=== PATIENT | female | born 1990 | race Caucasian/White ===

== ENCOUNTER → 2016-05-18 | Outpatient (CLI) | payer OTHER | LOC: M SMT 11:08 | PROVIDERS: ATTEND Advanced Practice Midwife | DX: N91.1 Secondary amenorrhea (principal) ==

== ENCOUNTER → 2016-06-20 | Outpatient (REF) | payer OTHER | LOC: M SFHCPLAZ 11:22 | PROVIDERS: ATTEND Dermatology | DX: D48.5 Neoplasm of uncertain behavior of skin (principal) ==

== ENCOUNTER → 2016-08-22 | Outpatient (REF) | payer OTHER ==
[2016-08-22 18:08] LABS: BASO % 0.4 % (0.0-1.0); CONTROL LINE HCG INT CTR LINE PRESENT; EOS # 0.2 K/mm3 (0.0-0.50); EOS % 3.6 % (0.0-3.0); LARGE UNSTAINED CELL # 0.1 K/mm3 (0.0-0.4); LARGE UNSTAINED CELL % 1.8 % (0.0-4.0); LYMPH # 1.9 K/mm3 (1.5-6.5); LYMPH % 29.3 % (24.0-44.0); MEAN CORPUSCULAR HEMOGLOBIN 30.7 pg (27.0-33.0); MONO # 0.3 K/mm3 (0.0-0.8); MONO % 5.3 % (0.0-5.0); NEUTROPHILS # 3.7 K/mm3 (1.8-7.7); NEUTROPHILS % 59.4 % (36.0-66.0); PLATELET COUNT, AUTOMATED 208 k/mm3 (150-450); RED CELL DISTRIBUTION WIDTH 12.6 % (11.5-14.5); WHITE BLOOD COUNT 6.2 K/mm3 (4.0-10.0)
[2016-08-22 18:19] LABS: PROLACTIN 13.5 NG/ML
[2016-08-22 19:37] LABS: T UPTAKE 37 % (30-39); THYROXINE (T4) 6.4 UG/DL (4.5-12.0)
== END ==
LOC: M LAB REF 17:31
PROVIDERS: ATTEND Family Medicine
DX: N93.8 Other specified abnormal uterine and vaginal bleeding (principal)

== ENCOUNTER → 2017-01-23 | Outpatient (CLI) | payer OTHER | LOC: M SMT 11:31 | PROVIDERS: ATTEND Obstetrics & Gynecology | DX: N97.0 Female infertility associated with anovulation (principal) ==

== ENCOUNTER → 2017-02-20 | Outpatient (CLI) | payer OTHER | LOC: M WUC 15:52 | PROVIDERS: ATTEND Obstetrics & Gynecology | DX: N97.0 Female infertility associated with anovulation (principal) ==

== ENCOUNTER → 2017-03-25 | Outpatient (CLI) | payer OTHER ==
[2017-03-25 20:27] LABS: PROGESTERONE 80.9 NG/ML
== END ==
LOC: M WUC 13:18
DX: N97.0 Female infertility associated with anovulation (principal)
CPT/HCPCS: 84144

== ENCOUNTER → 2017-04-25 | Outpatient (CLI) | payer OTHER ==
[2017-04-25 19:56] LABS: PROGESTERONE 28.5 NG/ML
== END ==
LOC: M WUC 13:46
DX: N97.0 Female infertility associated with anovulation (principal)
CPT/HCPCS: 84144

== ENCOUNTER → 2018-02-01 | Outpatient (CLI) | payer BC, OTHER | LOC: M LDO 22:50 | DX: O26.892 Other specified pregnancy related conditions, second trimester (principal); R10.30 Lower abdominal pain, unspecified; M54.5 Low back pain; O44.10 Complete placenta previa with hemorrhage, unspecified trimester; O26.852 Spotting complicating pregnancy, second trimester; Z3A.25 25 weeks gestation of pregnancy | CPT/HCPCS: 76815 ==

== ENCOUNTER → 2018-02-24 | Outpatient (CLI) | payer BC, OTHER ==
[2018-02-24 12:01] LABS: HEMATOCRIT 33.6 % (36.0-47.0); HEMOGLOBIN 11.2 g/dl (12.0-15.5); MEAN CORPUSCULAR HEMOGLOBIN 31.7 pg (27.0-33.0); MEAN CORPUSCULAR HGB CONC 33.3 g/dl (32.0-36.5); MEAN CORPUSCULAR VOLUME 95.2 fl (80.0-96.0); PLATELET COUNT, AUTOMATED 177 10^3/uL (150-450); RED BLOOD COUNT 3.53 10^6/uL (4.00-5.40); RED CELL DISTRIBUTION WIDTH 12.9 % (11.5-14.5); WHITE BLOOD COUNT 10.1 10^3/uL (4.0-10.0)
[2018-02-24 12:18] LABS: GLUCOSE CHALLENGE TEST 1 HOUR 88 MG/DL (LESS THAN 140)
== END ==
LOC: M LAB 10:19
DX: Z36.89 Encounter for other specified antenatal screening (principal)
CPT/HCPCS: 82950

== ENCOUNTER → 2018-04-10 | Outpatient (REF) | payer OTHER ==
[~2018-04-10] MED LIST: IBUP80TA PO; META0.52 PO; NORCOTAB PO; PERCOCET PO; PRENTAB55 PO; VALT1TAB PO
== END ==
LOC: M LAB REF 12:55 → MERGE 12:55
PROVIDERS: ATTEND Obstetrics & Gynecology
DX: Z3A.35 35 weeks gestation of pregnancy (principal); Z34.83 Encounter for supervision of other normal pregnancy, third trimester

== ENCOUNTER 2018-05-06 07:30 | Inpatient (IN) | payer BC, OTHER ==
[~2018-05-06] VITALS: Ht 162.6 cm; Wt 82.0 kg
[~2018-05-06 07:30] MED LIST changes: -IBUP80TA PO; -NORCOTAB PO; -PERCOCET PO
[2018-05-08] MEDS ORDERED: LACTATED RINGER'S 1000 ML IV STA (07:37)
[2018-05-08] MEDS: LR 1,000 ML IV SCH ×3 (07:37→23:37)
[2018-05-08] MEDS ORDERED: BICITRA 30ML SOLN UDC PO ONE (07:45)
[2018-05-08 07:46] VITALS: BP 124/82
[2018-05-08 08:09] LABS: HEMOGLOBIN 11.5 g/dl (12.0-15.5); MEAN CORPUSCULAR HEMOGLOBIN 30.8 pg (27.0-33.0); MEAN CORPUSCULAR HGB CONC 33.8 g/dl (32.0-36.5); MEAN CORPUSCULAR VOLUME 91.2 fl (80.0-96.0); PLATELET COUNT, AUTOMATED 170 10^3/uL (150-450); RED BLOOD COUNT 3.73 10^6/uL (4.00-5.40)
[2018-05-08 08:27] VITALS: BP 126/79
[2018-05-08] MEDS ORDERED: NALBUPHINE HCL 10 MG/ML AMP (J2300) IV PRN (10:45)
[2018-05-08] MEDS ORDERED: ONDANSETRON 4MG/2ML VIAL (J2405) IV PRN ×2 (10:45→11:45)
[2018-05-08] MEDS ORDERED: NALOXONE INJ 0.4 MG/1 ML VIAL (J2310) IV PRN ×2 (10:45)
[2018-05-08] MEDS ORDERED: diphenhydrAMINE INJ 50MG/ML VIAL (J1200) IV PRN (10:45)
[2018-05-08] MEDS ORDERED: METOCLOPRAMIDE INJ 10MG/2ML VIAL (J2765) IV PRN ×2 (10:45→11:45)
[2018-05-08] MEDS ORDERED: OXYTOCIN INJ 10 UNITS/ML VIAL (J2590) As Ordered ONE (10:48)
[2018-05-08] MEDS ORDERED: MORPHINE PRES-FREE INJ 10 MG/10 ML VIAL (J2274) As Ordered ONE (10:48)
[2018-05-08] MEDS ORDERED: ePHEDrine SULFATE 25 MG/5 ML(5MG/ML) SYRINGE As Ordered ONE (11:01)
[2018-05-08] MEDS ORDERED: PHENYLephrine HCL 500 MCG/5 ML (100MCG/ML) SYRINGE (J2370) As Ordered ONE (11:01)
[2018-05-08] MEDS ORDERED: ONDANSETRON 4MG/2ML VIAL (J2405) As Ordered ONE (11:01)
[2018-05-08] MEDS ORDERED: dexameTHASONE 4 MG/ML 1ML VIAL (J1100) As Ordered ONE (11:01)
[2018-05-08] MEDS ORDERED: KETOROLAC 60 MG/2 ML VIAL (J1885) As Ordered ONE (11:02)
[2018-05-08] MEDS ORDERED: fentaNYL 100 MCG/2 ML INJECTION (J3010) IV PRN (11:45)
[2018-05-08] MEDS ORDERED: LR 1,000 ML IV SCH (11:45)
[2018-05-08] MEDS ORDERED: RHOGAM 300 MCG (1500 IU) INJ (J2790) IM SCH (11:45)
[2018-05-08] MEDS ORDERED: MEASLES,MUMPS,RUBELLA VACCINE INJ (MMR-II) (90707) SC SCH (11:45)
[2018-05-08] MEDS ORDERED: PERCOCET 5MG/325MG TAB PO PRN (11:45)
[2018-05-08] MEDS ORDERED: NORCO, ANEXSIA 5/325MG TABLET (HYDROcodone/ACETAMINOPHEN) PO PRN (11:45)
[2018-05-08] MEDS ORDERED: MOM 30ML SUSPENSION UDC PO PRN (11:45)
[2018-05-08] MEDS ORDERED: MEPERIDINE INJ 25 MG/ML VIAL (J2175) IV PRN (11:45)
[2018-05-08] MEDS ORDERED: IBUP80TA PO (11:46)
[2018-05-08] MEDS ORDERED: PERCOCET PO (11:46)
[2018-05-08 11:58] LABS: CORD GAS ABE V -3.4; CORD GAS HCO3 V 21.3 MEQ/L; CORD GAS O2 SAT V 67.3 %; CORD GAS PCO2 V 37.3 mmHg; CORD GAS PH V 7.375 UNITS; CORD GAS PO2 V 26.6 mmHg; CORD GAS TCO2 V 22.5 MEQ/L
[2018-05-08 14:15] VITALS: BP 122/71
[2018-05-08] MEDS: NORCO, ANEXSIA 5/325MG TABLET (HYDROcodone/ACETAMINOPHEN) PO PRN ×2 (15:38→22:13)
[2018-05-08 15:48] VITALS: BP_SYST 115; BP_SYST 127; BP_DIAS 69; BP_DIAS 75
[2018-05-08] MEDS: IBUPROFEN 800 MG TAB PO SCH (18:44)
[2018-05-08 22:00] VITALS: BP 99/55
--- NOTE | 2018-05-08 22:11 | RO ---
DATE OF PROCEDURE: 05/08/2018 Jo Ann is a 28-year-old female who is at 39 weeks gestation with a history of placenta previa resolved to a low-lying placenta. The patient desires a primary section. She also has a history of herpes. After extensive counseling in the office a decision was made to proceed with the primary section. PREOPERATIVE DIAGNOSES 1. Term with low-lying placenta. 2. Desires primary section. 3. History of herpes. POSTOPERATIVE DIAGNOSIS 1. Term with low-lying placenta. 2. Desires primary section. 3. History of herpes. 4. Low-lying anterior placenta. PROCEDURE: Primary low transverse section via Pfannenstiel incision. ANESTHESIA: Spinal. SURGEON: Julio C Powell MD CEO & FOUNDER: Francia Monteiro MD COMPLICATIONS: None. ESTIMATED BLOOD LOSS: 500 mL. FINDINGS: Male infant in occiput transverse position. 9 and 9. weight 7 pounds 8 ounces. Normal-appearing tube and ovary and anterior low-lying placenta noted at the level of the year low lower uterine segment. DESCRIPTION OF PROCEDURE: After obtaining informed consent, the patient was taken to the operating room where spinal anesthetic was found to be adequate. She was then draped and prepped in usual sterile fashion in the supine position. With the help of Dr. Monteiro, a Pfannenstiel incision was made. This was carried down to the fascia. Fascia was then incised in midline fashion. The fascia was in midline fashion. The superior and inferior aspect dissected off the rectus muscles sharply. The perineum identified. Perineal cavity entered bluntly. A Mobius skin retractor was placed. A low-transverse uterine incision was made. Infant was delivered in atraumatic fashion. Nose and mouth bulb suctioned. Cord doubly clamped and cut. was handed over to the waiting warmer. Cord blood and cord gas were sent. Placenta removed manually. Uterus cleared of all clot and debris and the uterine incision was then repaired in two separate layers of #0 Vicryl sutures. All superficial bleeders were coagulated. Pelvis copiously irrigated with normal saline and suctioned out. Attention turned to the peritoneum which was closed in a running fashion using #2-0 Vicryl. Fascia closed in two separate segment of #0 Vicryl sutures. All superficial bleeders coagulated and the skin was reapproximated in subcuticular fashion using #3-0 Vicryl suture in a subcuticular fashion. Steri-Strips placed. The patient tolerated procedure well. She was then transferred to recovery room in stable condition.
[2018-05-08] MEDS: DOCUSATE SODIUM 100 MG CAP PO SCH (22:14)
[2018-05-09] VITALS (7 sets, daily range): BP systolic 97–145; BP diastolic 55–68
[2018-05-09] MEDS: NORCO, ANEXSIA 5/325MG TABLET (HYDROcodone/ACETAMINOPHEN) PO PRN ×3 (02:39→14:58)
[2018-05-09] MEDS: IBUPROFEN 800 MG TAB PO SCH ×3 (02:39→18:40)
[2018-05-09 07:04] LABS: HEMATOCRIT 27.7 % (36.0-47.0); MEAN CORPUSCULAR HGB CONC 32.9 g/dl (32.0-36.5); MEAN CORPUSCULAR VOLUME 94.2 fl (80.0-96.0); PLATELET COUNT, AUTOMATED 137 10^3/uL (150-450); RED BLOOD COUNT 2.94 10^6/uL (4.00-5.40); WHITE BLOOD COUNT 13.2 10^3/uL (4.0-10.0)
[2018-05-09 07:13] LABS: HEMOGLOBIN 9.1 g/dl (12.0-15.5)
[2018-05-09] MEDS: LR 1,000 ML IV SCH ×3 (07:37→23:20)
[2018-05-09] MEDS: PRENATAL VITAMINS CHEWABLE TABLET PO SCH (09:19)
[2018-05-09] MEDS: DOCUSATE SODIUM 100 MG CAP PO SCH ×2 (09:19→20:48)
[2018-05-10] MEDS: NORCO, ANEXSIA 5/325MG TABLET (HYDROcodone/ACETAMINOPHEN) PO PRN ×3 (00:22→10:00)
[2018-05-10 02:05] VITALS: BP 110/59
[2018-05-10] MEDS: IBUPROFEN 800 MG TAB PO SCH ×2 (03:12→09:59)
[2018-05-10 06:30] VITALS: BP 103/69
--- NOTE | 2018-05-10 07:48 | DS.PDOC ---
Discharge Summary General Date of Admission May 08, 2018 at 07:10 Date of Discharge 05/10/18 Discharge Summary PROCEDURES PERFORMED DURING STAY: Primary section ADMITTING DIAGNOSES: 1. Low lying placenta with history previa 2. Genital HSV DISCHARGE DIAGNOSES: 1. Term with primary section COMPLICATIONS/CHIEF COMPLAINT: H/O Placenta Previa, W/ Low Lying Placenta. HISTORY OF PRESENT ILLNESS: 28 yo ERVIN 05/15/18, pt of [facility]. complicated by history placenta previa that resolved to low lying placenta. Due to placental concerns and history genital HSV, pt and Dr Powell decided upon primary section. HOSPITAL COURSE: WNL DISCHARGE MEDICATIONS: Please see below. ALLERGIES: Please see below. PHYSICAL EXAMINATION ON DISCHARGE: VITAL SIGNS: Please see below. GENERAL: WNL HEENT: WM: NECK: Supple CARDIOVASCULAR EXAMINATION: Normotensive, HRR RESPIRATORY EXAMINATION: Clear, unlabored ABDOMINAL EXAMINATION: Fundus firm, wound well approximated, steri strips intact. No s/s infection EXTREMITIES: Equal strength and motion SKIN: Intact NEUROLOGICAL EXAMINATION: Intact PSYCHIATRIC EXAMINATION: Appropriate LABORATORY DATA: Please see below. PROGNOSIS: Good ACTIVITY: As tolerated. Pelvic rest DIET: Regular DISCHARGE PLAN: Discharge home. Routine care and precautions. DISPOSITION: Home. DISCHARGE INSTRUCTIONS: 1. Home. Routine precautions and care. Pelvic rest. F/u apt in office 2wks and 6 wks DISCHARGE CONDITION: Stable. TIME SPENT ON DISCHARGE: Greater than minutes. Vital Signs/I&Os Vital Signs Date Time Temp Pulse Resp B/P (MAP) Pulse Ox O2 Delivery O2 Flow Rate FiO2 05/10/18 06:30 97.1 75 16 103/69 (80) 96 Discharge Medications Scheduled Ibuprofen (Ibuprofen) 800 Mg Tab, 1 TAB PO TID for pain Multivitamins/ ( 19) 1 Tab Tab, 1 TAB PO DAILY, (Reported) Psyllium (Metamucil) 0.52 Gm Cap, 1 TBS PO DAILY, (Reported) Valacyclovir Hydrochloride (Valtrex) 1 Gm Tab, 1 GM PO DAILY, (Reported) Scheduled PRN Oxycodone/Acetaminophen (Percocet 5MG/325MG Tablet) 1 Tab Tab, 1 TAB PO QIDP PRN for pain Allergies Coded Allergies: Amoxicillin (Verified Allergy, Unknown, HIVES, 02/01/18) TAPE (Verified Adverse Reaction, Unknown, "ADHESIVES" RASH, 05/08/18) Corin Salas CNM May 10, 2018 07:48
[2018-05-10] MEDS ORDERED: NORCOTAB PO (07:50)
[2018-05-10] MEDS ORDERED: IBUP80TA PO (07:50)
[2018-05-10] MEDS: PRENATAL VITAMINS CHEWABLE TABLET PO SCH (08:21)
[2018-05-10] MEDS: DOCUSATE SODIUM 100 MG CAP PO SCH (08:21)
== END 2018-05-10 10:30 | disposition home or self-care (01) | DRG 540 ==
LOC: M LDI 05-08 07:10 → M OBS 05-08 20:02
PROVIDERS: ADMIT Obstetrics & Gynecology; ATTEND Obstetrics & Gynecology
PROC: 10D00Z1 Extraction of Products of Conception, Low, Open Approach (ICD-10-PCS; principal; 2018-05-08 09:30)
DX: O44.43 Low lying placenta NOS or without hemorrhage, third trimester (principal); Z3A.39 39 weeks gestation of pregnancy; Z37.0 Single live birth

== ENCOUNTER → 2018-05-19 | Outpatient (REF) | payer OTHER ==
[~2018-05-19] MED LIST changes: +IBUP80TA PO; +NORCOTAB PO; +PERCOCET PO
== END ==
LOC: M SFHCLERA 19:43
PROVIDERS: ATTEND Physician Assistant
DX: R50.9 Fever, unspecified (principal)

== ENCOUNTER → 2018-10-20 | Outpatient (REF) | payer OTHER ==
[~2018-10-20] MED LIST changes: +HYDR-3715 PO; -NORCOTAB PO
== END ==
LOC: M SFHCPLAZ 17:03
PROVIDERS: ATTEND Dermatology
DX: D22.5 Melanocytic nevi of trunk (principal)

== ENCOUNTER → 2019-02-18 | Outpatient (REF) | payer OTHER | LOC: M SFHCWAGY 19:07 | PROVIDERS: ATTEND Obstetrics & Gynecology | DX: Z12.4 Encounter for screening for malignant neoplasm of cervix (principal) ==

== ENCOUNTER → 2019-05-11 | Outpatient (REF) | payer OTHER | LOC: M LAB REF 09:06 | PROVIDERS: ATTEND Dermatology | DX: D49.2 Neoplasm of unspecified behavior of bone, soft tissue, and skin (principal) ==

== ENCOUNTER → 2019-05-25 | Outpatient (REF) | payer OTHER | LOC: M LAB REF 17:15 | PROVIDERS: ATTEND Dermatology | DX: D49.2 Neoplasm of unspecified behavior of bone, soft tissue, and skin (principal) ==

== ENCOUNTER → 2019-06-23 | Outpatient (CLI) | payer OTHER ==
[2019-06-23 12:51] LABS: PROGESTERONE 44.22 NG/ML
== END ==
LOC: M WUC 09:17
PROVIDERS: ATTEND Obstetrics & Gynecology Reproductive Endocrinology
DX: Z32.00 Encounter for pregnancy test, result unknown (principal)

== ENCOUNTER → 2019-06-25 | Outpatient (CLI) | payer OTHER ==
[2019-06-25 10:11] LABS: THYROID STIMULATING HORMONE 1.38 uIU/ML (0.358-3.740)
[2019-06-25 10:45] LABS: PROGESTERONE 29.12 NG/ML
[2019-06-25 10:46] LABS: ESTRADIOL 137.6 PG/ML
== END ==
LOC: M WUC 08:45
PROVIDERS: ATTEND Obstetrics & Gynecology Reproductive Endocrinology
DX: Z32.01 Encounter for pregnancy test, result positive (principal)

== ENCOUNTER → 2019-07-02 | Outpatient (CLI) | payer BC ==
[2019-07-02 15:20] LABS: PROGESTERONE 53.46 NG/ML
[2019-07-02 15:21] LABS: ESTRADIOL 238.1 PG/ML; THYROID STIMULATING HORMONE 1.16 uIU/ML (0.358-3.740)
== END ==
LOC: M PLALAB 13:29
PROVIDERS: ATTEND Obstetrics & Gynecology Reproductive Endocrinology
DX: N97.9 Female infertility, unspecified (principal)

== ENCOUNTER → 2019-07-02 | Outpatient (CLI) | payer BC ==
--- NOTE | 2019-07-03 04:47 | REP ---
Clinical: Dating and viability. Technique: Transabdominal and transvaginal first trimester obstetrical ultrasound. Findings: Anteverted uterus identified with suspected early intrauterine . Mean sac diameter of 13 mm corresponds to 5 weeks 3 days gestational age without obvious yolk sac or pole yet identified. Maternal left ovary is normal. Maternal right ovary includes 1.9 cm presumed corpus luteal cyst. Impression: Possible early intrauterine . Correlation with serial HCG levels and repeat ultrasound evaluation may be warranted.
== END ==
LOC: M WHC 12:50
PROVIDERS: ATTEND Obstetrics & Gynecology Reproductive Endocrinology
DX: Z32.01 Encounter for pregnancy test, result positive (principal)

== ENCOUNTER → 2019-07-09 | Outpatient (CLI) | payer BC ==
[2019-07-09 14:15] LABS: PROGESTERONE 30.55 NG/ML; THYROID STIMULATING HORMONE 1.23 uIU/ML (0.358-3.740)
== END ==
LOC: M PLALAB 09:42
PROVIDERS: ATTEND Obstetrics & Gynecology Reproductive Endocrinology
DX: O09.00 Supervision of pregnancy with history of infertility, unspecified trimester (principal)

== ENCOUNTER → 2019-07-09 | Outpatient (CLI) | payer BC ==
--- NOTE | 2019-07-09 18:43 | REP ---
Clinical: Dating and viability. Technique: Transabdominal and transvaginal first trimester obstetrical ultrasound with color Doppler evaluation. Findings: Ultrasound examination demonstrates a single live early intrauterine . Yolk sac with pole identified. CRL of 3 mm correspond to 6 weeks 0 days gestational age with estimated date of delivery 03/03/2020. heart rate equals 121 beats per minute. No subchorionic hemorrhage or significant abnormality noted. Maternal right corpus luteal cyst identified. Impression: Single live early intrauterine at 6 weeks 0 days gestational age. Complete anatomical assessment should be performed at 19-20 weeks.
== END ==
LOC: M WHC 09:07
PROVIDERS: ATTEND Obstetrics & Gynecology Reproductive Endocrinology
DX: O09.00 Supervision of pregnancy with history of infertility, unspecified trimester (principal); Z3A.01 Less than 8 weeks gestation of pregnancy; N83.11 Corpus luteum cyst of right ovary; O26.891 Other specified pregnancy related conditions, first trimester

== ENCOUNTER → 2019-08-05 | Outpatient (REF) | payer OTHER ==
[2019-08-05 14:29] LABS: HEMATOCRIT 38.3 % (36.0-47.0); HEMOGLOBIN 12.6 g/dl (12.0-15.5); MEAN CORPUSCULAR HEMOGLOBIN 30.5 pg (27.0-33.0); MEAN CORPUSCULAR HGB CONC 32.9 g/dl (32.0-36.5); MEAN CORPUSCULAR VOLUME 92.7 fl (80.0-96.0); PLATELET COUNT, AUTOMATED 246 10^3/uL (150-450); RED BLOOD COUNT 4.13 10^6/uL (4.00-5.40); WHITE BLOOD COUNT 9.7 10^3/uL (4.0-10.0)
[2019-08-05 15:43] LABS: HEPATITIS B SURFACE ANTIGEN NEGATIVE (NEGATIVE); HEPATITIS C VIRUS ABY INDEX 0.1 INDEX (<0.8); HIV 1&2 SCREEN CENTAUR NEGATIVE (NEGATIVE)
[2019-08-05 15:51] LABS: CHLAMYDIA DNA AMPLIFICATION NEGATIVE (NEGATIVE); GC DNA AMPLIFICATION NEGATIVE (NEGATIVE)
== END ==
LOC: M PLALAB 10:45
PROVIDERS: ATTEND Obstetrics & Gynecology
DX: O34.211 Maternal care for low transverse scar from previous cesarean delivery (principal); Z3A.00 Weeks of gestation of pregnancy not specified

== ENCOUNTER → 2019-10-01 | Outpatient (CLI) | payer BC ==
--- NOTE | 2019-10-01 17:55 | REP ---
OB ULTRASOUND: Real-time sonographic evaluation of gravid uterus performed. There is a single living intrauterine gestation, estimated gestational age, 18 weeks 5 days, EDC . Today's measurements indicate appropriate growth. BPD 40 mm = 18 weeks 0 days, 32nd percentile HC 149 mm = 18 weeks 0 days, 30th percentile AC 125 mm = 18 weeks 1 day, 37th percentile Femur length 27 mm = 18 weeks 1 day, 37th percentile HC/AC ratio 1.20, normal range 1.07-1.26. Estimated weight 226 grams. 26th percentile. Cervix is closed and measures 3.3 cm in length. heart rate 149 beats per minute. SEEN/GROSSLY UNREMARKABLE Lateral ventricles Yes Posterior fossa Yes Upper lip Yes Four-chamber heart No LVOT No RVOT Yes Stomach Yes Cord insertion Yes Three vessel cord Yes Kidneys Yes Bladder Yes Spine Yes position: Variable. Placenta: Posterior and grade 1 with no previa or abruption. Amniotic fluid: Within normal limits.
== END ==
LOC: M WHC 12:43
PROVIDERS: ATTEND Advanced Practice Midwife
DX: O34.219 Maternal care for unspecified type scar from previous cesarean delivery (principal)

== ENCOUNTER → 2019-10-30 | Outpatient (CLI) | payer BC ==
--- NOTE | 2019-12-09 08:49 | REP ---
OBSTETRIC SONOGRAPHY HISTORY: Encounter for supervision of normal . Follow-up anatomy four chamber heart and left ventricular outflow tract view. FINDINGS: Scanning through the gravid uterus demonstrates a viable single intrauterine gestation in a breech lie. The placenta is posterior grade 1 without evidence of placenta previa or abruption. Amniotic fluid is subjectively normal. heart rate is recorded at 158 beats per minute. Closed cervical length is 3.6 cm viewed transabdominally. Sagittal images of the spine are obtained today and are felt to be unremarkable. kidneys and bladder are felt to be normal. Three-vessel cord and abdominal wall cord insertion are seen and are felt to be unremarkable. Four chamber heart and left and right ventricular outflow tract views were obtained today and are unremarkable as well. BIOMETRY CHART: BPD 49 mm 21 weeks 0 days Head Circumference 197 mm 21 weeks 6 days Abdominal Circumference 167 mm 21 weeks 5 days Femur Length 38 mm 22 weeks 0 days Humeral Length 36 mm 27 weeks 3 days Estimated Weight 450 g 7th percentile IMPRESSION: Viable single intrauterine gestation at 21 weeks 5 days. Estimated date of delivery (ERVIN) by today's sonography 03/06/2020. Four chamber heart and left ventricular outflow tract views are obtained today and are felt to be unremarkable. MTDD
== END ==
LOC: M WHC 13:49
PROVIDERS: ATTEND Advanced Practice Midwife
DX: Z34.92 Encounter for supervision of normal pregnancy, unspecified, second trimester (principal); Z3A.21 21 weeks gestation of pregnancy

== ENCOUNTER → 2019-11-25 | Outpatient (CLI) | payer BC ==
[2019-11-25 14:06] LABS: BASO % 0.4 % (0.0-1.0); EOS # 0.2 10^3/uL (0.0-0.5); EOS % 1.9 % (0.0-3.0); HEMATOCRIT 34.9 % (36.0-47.0); HEMOGLOBIN 11.6 g/dl (12.0-15.5); LYMPH # 1.2 10^3/uL (1.5-5.0); LYMPH % 12.6 % (24.0-44.0); MEAN CORPUSCULAR HEMOGLOBIN 32.4 pg (27.0-33.0); MEAN CORPUSCULAR HGB CONC 33.2 g/dl (32.0-36.5); MEAN CORPUSCULAR VOLUME 97.5 fl (80.0-96.0); MONO # 0.8 10^3/uL (0.0-0.8); MONO % 8.5 % (0.0-5.0); NEUTROPHILS # 7.1 10^3/uL (1.5-8.5); NEUTROPHILS % 76.1 % (36.0-66.0); PLATELET COUNT, AUTOMATED 198 10^3/uL (150-450); RED BLOOD COUNT 3.58 10^6/uL (4.00-5.40); WHITE BLOOD COUNT 9.4 10^3/uL (4.0-10.0)
== END ==
LOC: M PLALAB 09:14
PROVIDERS: ATTEND Advanced Practice Midwife
DX: Z34.82 Encounter for supervision of other normal pregnancy, second trimester (principal)

== ENCOUNTER → 2019-12-14 | Outpatient (CLI) | payer BC ==
--- NOTE | 2019-12-17 11:38 | REP ---
OBSTETRIC SONOGRAPHY HISTORY: growth study. Supervision of . FINDINGS: Scanning through the gravid uterus demonstrates a single living intrauterine gestation in a vertex lie. motion is observed, and heart rate is recorded at 144 beats per minute. A posterior grade 1 placenta is seen without evidence of previa. Amniotic fluid is subjectively normal. Closed cervical length is 3.2 cm measured transabdominally. BIOMETRY CHART: BPD 7.1 cm 28 weeks 4 days Head Circumference 26.4 cm 28 weeks 5 days Abdominal Circumference 24.7 cm 29 weeks 0 days Femur Length 5.4 cm 28 weeks 3 days Humeral Length 4.8 cm 28 weeks 2 days HC/AC ratio Normal 1.07 Cephalic index Normal 0.75 Estimated Weight 1277 g 2 pounds 13 ounces, 20th percentile for 29 weeks 2 days STEPHEN 15.4 cm, normal IMPRESSION: Viable single intrauterine gestation at 28 weeks 4 days by todays composite sonographic criteria. ERVIN by todays sonography March 03, 2020. MTDD
== END ==
LOC: M WHC 09:24
PROVIDERS: ATTEND Advanced Practice Midwife
DX: Z34.83 Encounter for supervision of other normal pregnancy, third trimester (principal); Z3A.28 28 weeks gestation of pregnancy

== ENCOUNTER → 2020-01-29 | Outpatient (REF) | payer OTHER | LOC: M PLALAB 13:31 | PROVIDERS: ATTEND Obstetrics & Gynecology | DX: Z3A.35 35 weeks gestation of pregnancy (principal) ==

== ENCOUNTER 2020-03-01 12:21 | Inpatient (IN) | payer BC, OTHER ==
[2020-03-01] VITALS (34 sets, daily range): BP systolic 96–144; BP diastolic 51–86
[~2020-03-01] VITALS: Ht 162.6 cm; Wt 82.6 kg
[~2020-03-01 12:21] MED LIST changes: +PRENTAB53 PO
[2020-03-01] MEDS ORDERED: LR 1,000 ML IV SCH (13:22)
[2020-03-01] MEDS ORDERED: LACTATED RINGER'S 1000 ML IV STA (13:22)
[2020-03-01] MEDS ORDERED: TUMS500C PO (14:17)
--- NOTE | 2020-03-01 14:33 | HPEPDOC ---
Obstetrical History & Physical General Date of Admission Mar 01, 2020 at 12:21 History of Present Illness 29-year-old at 40+3 weeks gestation. Presents for an induction of labor. Indication for induction: Approaching late term gestation, trial of labor with favorable cervix, preferring induction of labor She denies vaginal bleeding, loss of fluid or painful, frequent uterine contractions. She reports regular movement. She denies headache, visual changes, right upper quadrant pain, shortness of breath or chest pain. course: 1. h/o PLTCS for complete placenta previa 2. Desires TOLAC PMH: PCOS SH: LTCS x 1 Meds: vitamin All: NKDA BARTENDER: No STI or dysplasia OB: G1, SAB. G2, PLTCS complete previa, 39+ weeks Sochx: No tobacco, alcohol or drug use FamHx: thyroid CA, skin CA, MM labs: Blood type O+, antibody screen negative, HepBsAg neg, HIV neg, rubella immune, Hep C antibody negative, RPR nonreactive, CT/GC neg, urine culture negative, 1 hour glucose challenge test 72, GBS negative. Past Medical History Allergies Coded Allergies: adhesive (Verified Allergy, Intermediate, hives, 02/26/20) amoxicillin (Verified Allergy, Intermediate, hives, 02/26/20) TAPE (Verified Adverse Reaction, Unknown, "ADHESIVES" RASH, 02/26/20) Medications Scheduled Vit,Calc76/Iron/Folic (Prenatabs Rx Tablet) 1 Each Tablet, 1 TAB PO DAILY Scheduled PRN Calcium Carbonate (Tums) 200 Mg Tab.chew, 2 TAB PO QID PRN for HEARTBURN Physical Examination Physical Examination GENERAL: Alert and oriented times three. BREAST: . ABDOMEN: Gravid and non-tender to touch. FETUS: Is vertex (VTX) by sterile vaginal examination (SVE), fetus is vertex (VTX) by Harry. HEART RATE: Regular rate and rhythm. LUNGS: Clear to auscultation (CTA). EXTREMITIES: No edema. No clonus. Deep tendon reflexes (DTRs) + 2. SVE: 3-4cm/80%/-3; cephalic, intact. EFM: Category 1 [place]: irregular Laboratory Data 24H LABS Laboratory Tests 2 03/01/20 12:38: Serology Scanned Report Hepatitis B Testing Pertinent Laboratoy Data Blood Type: O+ Assessment/Plan Assessment 29-year old at 40+3 weeks gestation. Dx: TOLAC, approaching late term gestation, favorable cervix, electing IOL after reviewing r/b/a/i. Reassuring maternal and status. Plan Admit and orient. Routine labs/orders Counseled on Pitocin and induction of labor (IOL). Mode of delivery plan: TOLAC/; as indicated. ZACH NASSAR DO Mar 01, 2020 14:33
[2020-03-01] MEDS ORDERED: OXYTOCIN DRIP 30 UNITS in IV 1 EA IV SCH (14:45)
[2020-03-01 15:11] LABS: HEMATOCRIT 36.5 % (36.0-47.0); HEMOGLOBIN 12.2 g/dl (12.0-15.5); MEAN CORPUSCULAR HEMOGLOBIN 31.5 pg (27.0-33.0); MEAN CORPUSCULAR HGB CONC 33.4 g/dl (32.0-36.5); MEAN CORPUSCULAR VOLUME 94.3 fl (80.0-96.0); PLATELET COUNT, AUTOMATED 169 10^3/uL (150-450); RED BLOOD COUNT 3.87 10^6/uL (4.00-5.40); WHITE BLOOD COUNT 8.5 10^3/uL (4.0-10.0)
--- NOTE | 2020-03-01 20:37 | IPNPDOC ---
Obstetrical Progress Note Date of Service Mar 01, 2020 Subjective Patient feeling mildly uncomfortable with contractions. No LOF/VB. Objective Vital Signs Date Time Temp Pulse Resp B/P (MAP) Pulse Ox O2 Delivery O2 Flow Rate FiO2 03/01/20 18:35 62 18 116/77 (90) 03/01/20 16:02 97.9 98 Room Air Assessment Heart Rate Tracing: Category I Tocometer Contractions: Yes Frequency: every 1-3 min. (Pit at 14mU/min) Sterile Vaginal Examination Dilation: 4 cm Effacement (%): 90% Station: -2 Cervical Consistency: Soft Cervical Position: Anterior Postion/Presentation: Cephalic presentation Assessment and Plan Status: Reassuring Additional Comments Reassuring maternal and status. TOLAC. AROM , clear at 2029. Continue Pitocin Reviewed pain management options. ZACH NASSAR DO Mar 01, 2020 20:37
[2020-03-01] MEDS ORDERED: FENTANYL 2MCG/ML ROPIVACAINE 0.2% IN 0.9% NACL 100ML IVBAG As Ordered ONE (21:03)
[2020-03-01] MEDS ORDERED: ePHEDrine SULFATE 25 MG/5 ML(5MG/ML) SYRINGE IV PRN (22:15)
[2020-03-01] MEDS ORDERED: NALOXONE INJ 0.4MG/1ML VIAL (J2310 PER 1MG) IV PRN (22:15)
[2020-03-01] MEDS ORDERED: REFRIGERATOR IV KEYS XX PRN (22:15)
[2020-03-01] MEDS ORDERED: FENTANYL/ROPIVACAINE/NACL BAG 100 ML EPIDURAL SCH (22:15)
[2020-03-01] MEDS ORDERED: ONDANSETRON 4MG/2ML VIAL IV PRN (22:15)
[2020-03-01] MEDS ORDERED: EPIDURAL COMMENT XX SCH (22:15)
[2020-03-01] MEDS ORDERED: EPIDURAL/PCA KEYS XX PRN (22:15)
[2020-03-01] MEDS ORDERED: LACTATED RINGER'S 1000 ML IV PRN (22:15)
[2020-03-01] MEDS ORDERED: diphenhydrAMINE 50MG/ML VIAL (J1200) IV PRN (22:15)
[2020-03-02] MEDS ORDERED: OXYTOCIN DRIP 30 UNITS in IV 1 EA IV SCH (01:27)
[2020-03-02] MEDS ORDERED: LR 1,000 ML IV SCH (01:27)
[2020-03-02] MEDS ORDERED: ACETAMINOPHEN 500 MG TAB PO PRN (01:30)
[2020-03-02] MEDS ORDERED: RHOGAM 300 MCG (1500 IU) INJ (J2790) IM SCH (01:30)
[2020-03-02] MEDS ORDERED: ONDANSETRON 4MG/2ML VIAL IV PRN (01:30)
[2020-03-02] MEDS ORDERED: IBUPROFEN 600MG TAB PO PRN (01:30)
[2020-03-02] MEDS ORDERED: DOCUSATE SODIUM 100MG CAPSULE PO PRN (01:30)
[2020-03-02] MEDS ORDERED: BENZOCAINE 20% HEMORRHOIDAL OINTMENT 28GM TUBE TOP PRN (01:30)
[2020-03-02] MEDS ORDERED: IBUPROFEN 800 MG TAB PO PRN (01:30)
[2020-03-02] MEDS ORDERED: MEASLES,MUMPS,RUBELLA VACCINE INJ (MMR-II) (90707) SC SCH (01:30)
[2020-03-02] MEDS ORDERED: ACETAMINOPHEN TAB 650MG DOSE (2X325MG) PO PRN (01:30)
--- NOTE | 2020-03-02 01:34 | DNPDOC ---
[facility] Delivery Note Delivery Note DATE OF DELIVERY: 03/02/2020 TIME OF DELIVERY: 0106 Vaginal after . MECHANICAL CAR CHECKER: Dr. David Felton DO FACOG ANESTHESIA:. Epidural LACERATION: Second-degree ESTIMATED BLOOD LOSS: 300 mL. FINDINGS: 7 pound 6 ounce (3350 g), female , Score, 7 and 9. DELIVERY SUMMARY: The active phase and second stage of labor progressed in normal fashion. She received Pitocin augmentation throughout her labor course. The head delivered in the CAYDEN position, and restituted LOT. No nuchal cord was noted. The anterior shoulder delivered with gentle downward guidance and the remainder of the body delivered with ease. The baby was placed on the patient's chest. Delayed cord clamping occurred for approximately 1 minute. The cord was then doubly clamped and cut. IV Pitocin was bolused to actively manage the third stage of labor. The placenta delivered intact without any difficulty within 10 minutes of delivery. The uterine fundus was noted to be firm and 2 cm below the umbilicus. The cervix, vagina, vulva and perineum were inspected. A second-degree laceration was noted and immediately repaired with 3-0 Vicryl in typical fashion. Excellent hemostasis was noted. Sponge, needle and instrument counts were correct per protocol. DO ROSANNA Park JONATHAN R. DO Mar 02, 2020 01:34
[2020-03-02 05:15] VITALS: BP 117/71
[2020-03-02] MEDS: PRENATAL VITAMINS CHEWABLE TABLET PO SCH (08:02)
[2020-03-02 17:50] VITALS: BP 121/70
[2020-03-03 06:00] VITALS: BP 122/74
[2020-03-03] MEDS ORDERED: BOOSTRIX/ADACEL VACCINE (DIPHTH/PERTUSS/ACELL/TETANUS) 0.5ML SYR IM ONE (09:00)
[2020-03-03] MEDS: PRENATAL VITAMINS CHEWABLE TABLET PO SCH (09:18)
== END 2020-03-03 12:40 | disposition home or self-care (01) | DRG 560 ==
LOC: M LDI 12:21 → M OBS 03-02 04:56
PROVIDERS: ADMIT Obstetrics & Gynecology; ATTEND Obstetrics & Gynecology
PROC: 3E033VJ Introduction of Other Hormone into Peripheral Vein, Percutaneous Approach (ICD-10-PCS; 2020-03-01)
PROC: 10907ZC Drainage of Amniotic Fluid, Therapeutic from Products of Conception, Via Natural or Artificial Opening (ICD-10-PCS; 2020-03-01)
PROC: 10E0XZZ Delivery of Products of Conception, External Approach (ICD-10-PCS; principal; 2020-03-02)
PROC: 0KQM0ZZ Repair Perineum Muscle, Open Approach (ICD-10-PCS; 2020-03-02)
DX: O48.0 Post-term pregnancy (principal); O70.1 Second degree perineal laceration during delivery; Z3A.40 40 weeks gestation of pregnancy; O34.211 Maternal care for low transverse scar from previous cesarean delivery; Z37.0 Single live birth

== ENCOUNTER → 2020-09-05 | Outpatient (REF) | payer OTHER ==
[~2020-09-05] MED LIST changes: +TUMS500C PO
[2020-09-05 11:58] LABS: HEMATOCRIT 37.5 % (36.0-47.0); HEMOGLOBIN 12.4 g/dl (12.0-15.5); MEAN CORPUSCULAR HEMOGLOBIN 30.8 pg (27.0-33.0); MEAN CORPUSCULAR HGB CONC 33.1 g/dl (32.0-36.5); MEAN CORPUSCULAR VOLUME 93.3 fl (80.0-96.0); PLATELET COUNT, AUTOMATED 220 10^3/uL (150-450); RED BLOOD COUNT 4.02 10^6/uL (4.00-5.40); WHITE BLOOD COUNT 8.7 10^3/uL (4.0-10.0)
[2020-09-05 13:32] LABS: CHLAMYDIA DNA AMPLIFICATION NEGATIVE (NEGATIVE); GC DNA AMPLIFICATION NEGATIVE (NEGATIVE)
[2020-09-05 14:50] LABS: HEPATITIS C VIRUS ABY INDEX < 0.0 INDEX (<0.8); HIV 1&2 SCREEN CENTAUR NEGATIVE (NEGATIVE)
== END ==
LOC: M PLALAB 08:35
PROVIDERS: ATTEND Specialist
DX: Z34.81 Encounter for supervision of other normal pregnancy, first trimester (principal)

== ENCOUNTER → 2020-11-15 | Outpatient (CLI) | payer BC, OTHER ==
--- NOTE | 2020-11-15 10:05 | REP ---
INDICATION: ANATOMY COMPARISON: None. TECHNIQUE: Transabdominal obstetrical ultrasound with color Doppler evaluation. FINDINGS: Examination demonstrates a single live intrauterine in variable presentation. motion is identified by technologist. Placenta is noted posterior and grade 0 without evidence for placenta previa or abruption. Amniotic fluid volume is normal. Cervix measures 4.8 cm in length and appears closed.. Selected gestational age: 18 weeks 4 days with ERVIN 04/14/2021. Gestational age by current measurements 18 weeks 5 days with ERVIN 04/13/2021. FHR equals 147 beats per minute. BPD: 4.1 cm at 18 weeks 3 days HC: 15.7 cm at 18 weeks 4 days AC: 13.2 cm at 18 weeks 5 days FL: 2.9 cm at 18 weeks 5 days HL: 2.9 cm at 19 weeks 3 days HC/AC: 1.20 Estimated weight 253 grams (54thpercentile). Anatomical assessment demonstrates normal structures including cranium, choroid plexus, cavum, cerebellum/posterior fossa, facial features, lungs, four-chamber heart/ventricular outflow tracts, diaphragm, stomach, cord insertion/three-vessel cord, kidneys/bladder, spine, and extremities. IMPRESSION: Single live intrauterine demonstrating appropriate interval growth. Anatomical assessment is complete and normal. No gross abnormalities are identified. <Electronically signed by Dc Rivera > 11/15/20 1001
== END ==
LOC: M WHC 09:02
PROVIDERS: ATTEND Advanced Practice Midwife
DX: Z34.92 Encounter for supervision of normal pregnancy, unspecified, second trimester (principal)

== ENCOUNTER → 2021-01-06 | Outpatient (CLI) | payer BC, OTHER ==
[2021-01-06 13:23] LABS: MEAN CORPUSCULAR HEMOGLOBIN 31.4 pg (27.0-33.0); MEAN CORPUSCULAR HGB CONC 32.4 g/dl (32.0-36.5); MEAN CORPUSCULAR VOLUME 97.1 fl (80.0-96.0); PLATELET COUNT, AUTOMATED 241 10^3/uL (150-450); WHITE BLOOD COUNT 9.8 10^3/uL (4.0-10.0)
== END ==
LOC: M PLALAB 08:41
PROVIDERS: ATTEND Advanced Practice Midwife
DX: Z36.89 Encounter for other specified antenatal screening (principal); O34.211 Maternal care for low transverse scar from previous cesarean delivery; Z3A.00 Weeks of gestation of pregnancy not specified

== ENCOUNTER → 2021-03-16 | Outpatient (REF) | payer OTHER | LOC: M SFHCWAGY 16:45 | PROVIDERS: ATTEND Obstetrics & Gynecology | DX: O34.211 Maternal care for low transverse scar from previous cesarean delivery (principal) ==

== ENCOUNTER → 2021-06-23 | Outpatient (REF) | payer BC, OTHER | LOC: M SFHCDERM 14:03 | PROVIDERS: ATTEND Nurse Practitioner Family | DX: D22.71 Melanocytic nevi of right lower limb, including hip (principal); D22.5 Melanocytic nevi of trunk; L57.0 Actinic keratosis ==

== ENCOUNTER → 2022-01-02 | Outpatient (REF) | payer BC, OTHER ==
[2022-01-02 19:35] LABS: FREE T4 0.88 NG/DL (0.76-1.46); THYROID STIMULATING HORMONE 0.749 uIU/ML (0.358-3.740)
[2022-01-02 20:00] LABS: THYROGLOBULIN ANTIBODY < 15.0 U/ML (<60.0); THYROID PEROXIDASE ANTIBODY < 28.0 U/ML (<60.0)
== END ==
LOC: M WUC 17:10
PROVIDERS: ATTEND Family Medicine
DX: E04.1 Nontoxic single thyroid nodule (principal); E06.9 Thyroiditis, unspecified

== ENCOUNTER 2022-01-09 13:39 | Emergency (ER) | payer BC, OTHER ==
[~2022-01-09] VITALS: Ht 162.6 cm; Wt 63.8 kg
[2022-01-09 13:43] VITALS: BP 126/75
[2022-01-09 16:43] LABS: HEMATOCRIT 42.8 % (36.0-47.0); HEMOGLOBIN 13.8 g/dl (12.0-15.5); MEAN CORPUSCULAR HEMOGLOBIN 30.1 pg (27.0-33.0); MEAN CORPUSCULAR HGB CONC 32.2 g/dl (32.0-36.5); MEAN CORPUSCULAR VOLUME 93.2 fl (80.0-96.0); PLATELET COUNT, AUTOMATED 229 10^3/uL (150-450); RED BLOOD COUNT 4.59 10^6/uL (4.00-5.40); WHITE BLOOD COUNT 7.7 10^3/uL (4.0-10.0)
[2022-01-09 17:08] LABS: HCG, SERUM QUALITATIVE NEGATIVE (NEGATIVE)
[2022-01-09 17:26] LABS: ALBUMIN 3.9 GM/DL (3.2-5.2); ALT/SGPT 18 U/L (12-78); BILIRUBIN,DIRECT 0.1 MG/DL (0.0-0.2); BILIRUBIN,TOTAL 0.4 MG/DL (0.2-1.0); BLOOD UREA NITROGEN 12 MG/DL (7-18); CALCIUM LEVEL 8.8 MG/DL (8.5-10.1); CARBON DIOXIDE LEVEL 25 MEQ/L (21-32); CHLORIDE LEVEL 108 MEQ/L (98-107); CREATININE FOR GFR 0.85 MG/DL (0.55-1.30); FREE T4 0.84 NG/DL (0.76-1.46); GLOMERULAR FILTRATION RATE > 60.0 (>60); GLUCOSE, FASTING 91 MG/DL (70-100); POTASSIUM SERUM 4.2 MEQ/L (3.5-5.1); SODIUM LEVEL 139 MEQ/L (136-145); TOTAL PROTEIN 7.4 GM/DL (6.4-8.2)
[2022-01-09] MEDS ORDERED: ISOVUE-370 76% 100ML VIAL As Ordered ONE (19:06)
== END 2022-01-09 20:05 | disposition home or self-care (01) ==
LOC: M ED 13:39
DX: E07.89 Other specified disorders of thyroid (principal); R06.02 Shortness of breath; E28.2 Polycystic ovarian syndrome; Z88.1 Allergy status to other antibiotic agents; Z91.048 Other nonmedicinal substance allergy status
CPT/HCPCS: 36415; 70491; 80053; 82248; 84439; 84443; 84703; 85027; 99283; Q9967

== ENCOUNTER → 2022-01-10 | Outpatient (CLI) | payer BC, OTHER | LOC: M WHC 08:20 | PROVIDERS: ATTEND Family Medicine | DX: E04.1 Nontoxic single thyroid nodule (principal); R49.8 Other voice and resonance disorders ==

== ENCOUNTER → 2022-02-14 | Outpatient (CLI) | payer BC, OTHER ==
[~2022-02-14] MED LIST changes: +E-Z-GAS II EFFERVESCENT PACKET (SODIUM BICARB./CITRIC ACID/SIMETHICONE) As Ordered ONE; +E-Z-HD 98% w/w 340GM SUSP BTL As Ordered ONE; +E-Z-PAQUE 96% w/w SUSP 176GM BTL As Ordered ONE
== END ==
LOC: M RAD 08:16
PROVIDERS: ATTEND Otolaryngology
DX: R13.10 Dysphagia, unspecified (principal)

== ENCOUNTER → 2022-10-16 | Outpatient (CLI) | payer BC, OTHER ==
[~2022-10-16] MED LIST changes: -E-Z-GAS II EFFERVESCENT PACKET (SODIUM BICARB./CITRIC ACID/SIMETHICONE) As Ordered ONE; -E-Z-HD 98% w/w 340GM SUSP BTL As Ordered ONE; -E-Z-PAQUE 96% w/w SUSP 176GM BTL As Ordered ONE
== END ==
LOC: M RAD 08:29
PROVIDERS: ATTEND Physician Assistant
DX: R10.13 Epigastric pain (principal)

== ENCOUNTER → 2022-10-31 | Outpatient (CLI) | payer BC, OTHER | LOC: M WHC 07:34 | PROVIDERS: ATTEND Nurse Practitioner Family | DX: R10.2 Pelvic and perineal pain (principal) ==

== ENCOUNTER → 2022-11-05 | Outpatient (CLI) | payer BC, OTHER | LOC: M PLAIMG 13:52 | PROVIDERS: ATTEND Nurse Practitioner Family | DX: Z97.5 Presence of (intrauterine) contraceptive device (principal); T83.32XA Displacement of intrauterine contraceptive device, initial encounter ==

== ENCOUNTER 2023-02-04 14:01 | Day surgery (SDC) | payer BC, OTHER ==
[~2023-02-04] VITALS: Ht 162.6 cm; Wt 65.0 kg
[~2023-02-04 14:01] MED LIST changes: +HYDROMORPHONE HCL 0.5 MG/ 0.5 ML SYRINGE IV PRN; +LR 1,000 ML IV SCH; +MIDAZOLAM INJ 2MG/2ML VIAL As Ordered ONE; +MUSHROOM; +ONDANSETRON 4MG 2ML VIAL IV PRN; +PROMETHAZINE 25MG/ML 1ML VIAL IV PRN; +THERTAB52 PO; +fentaNYL 100 MCG/2 ML INJECTION As Ordered ONE; +fentaNYL 100 MCG/2 ML INJECTION IV PRN; +oxyCODONE 5MG TAB PO PRN
[2023-02-04 14:42] LABS: HEMATOCRIT 38.2 % (36.0-47.0); HEMOGLOBIN 12.7 g/dl (12.0-15.5); MEAN CORPUSCULAR HEMOGLOBIN 30.7 pg (27.0-33.0); MEAN CORPUSCULAR HGB CONC 33.2 g/dl (32.0-36.5); MEAN CORPUSCULAR VOLUME 92.3 fl (80.0-96.0); PLATELET COUNT, AUTOMATED 220 10^3/uL (150-450); RED BLOOD COUNT 4.14 10^6/uL (4.00-5.40); WHITE BLOOD COUNT 7.1 10^3/uL (4.0-10.0)
[2023-02-04 14:49] LABS: HCG, SERUM QUALITATIVE NEGATIVE (NEGATIVE)
[2023-02-04] MEDS ORDERED: ACETAMINOPHEN 1000MG 100ML IV BAG As Ordered ONE (15:35)
[2023-02-04] MEDS ORDERED: KETOROLAC 60MG 2ML VIAL As Ordered ONE (15:35)
[2023-02-04] MEDS ORDERED: SUGAMMADEX SODIUM 500 MG/5 ML VIAL (BRIDION) As Ordered ONE (15:35)
[2023-02-04] MEDS ORDERED: LIDOCAINE 2% 100MG/5ML SDV (FOR ANES.) As Ordered ONE (15:35)
[2023-02-04] MEDS ORDERED: propofoL 200 MG/20 ML VIAL As Ordered ONE (15:35)
[2023-02-04] MEDS ORDERED: ONDANSETRON 4MG 2ML VIAL As Ordered ONE (15:35)
[2023-02-04] MEDS ORDERED: ROCURONIUM BROMIDE 50MG/5ML VIAL As Ordered ONE (15:35)
[2023-02-04] MEDS ORDERED: PERC5TAB12 PO (17:19)
[2023-02-04] MEDS ORDERED: IBUP80TA PO (17:22)
[2023-02-04] MEDS ORDERED: COLA100C5 PO (17:23)
[2023-02-04] MEDS ORDERED: HYDROMORPHONE HCL 0.5 MG/ 0.5 ML SYRINGE IV PRN (17:35)
[2023-02-04] MEDS ORDERED: fentaNYL 100 MCG/2 ML INJECTION IV PRN (17:35)
[2023-02-04] MEDS ORDERED: oxyCODONE 5MG TAB PO PRN (17:35)
[2023-02-04] MEDS ORDERED: LR 1,000 ML IV SCH (17:35)
[2023-02-04] MEDS ORDERED: ONDANSETRON 4MG 2ML VIAL IV PRN (17:35)
[2023-02-04 18:20] VITALS: BP 126/69; TEMP 97.2; O2SAT 99
== END 2023-02-04 19:02 | disposition home or self-care (01) ==
LOC: M SDC 14:01
PROVIDERS: ATTEND Obstetrics & Gynecology
DX: Z30.2 Encounter for sterilization (principal); T83.32XA Displacement of intrauterine contraceptive device, initial encounter; N83.8 Other noninflammatory disorders of ovary, fallopian tube and broad ligament; Y76.2 Prosthetic and other implants, materials and accessory obstetric and gynecological devices associated with adverse incidents; Y92.9 Unspecified place or not applicable; Z88.0 Allergy status to penicillin
CPT/HCPCS: 36415; 58301; 58661; 84703; 85027; 86850; 86900; 86901; 88302; J0131; J0665; J1100; J1885; J2250; J2405; J3010

== ENCOUNTER → 2023-05-02 | Outpatient (REF) | payer BC, OTHER ==
[~2023-05-02] MED LIST changes: +COLA100C5 PO; -HYDROMORPHONE HCL 0.5 MG/ 0.5 ML SYRINGE IV PRN; -LR 1,000 ML IV SCH; -MIDAZOLAM INJ 2MG/2ML VIAL As Ordered ONE; -ONDANSETRON 4MG 2ML VIAL IV PRN; +PERC5TAB12 PO; -PROMETHAZINE 25MG/ML 1ML VIAL IV PRN; -fentaNYL 100 MCG/2 ML INJECTION As Ordered ONE; -fentaNYL 100 MCG/2 ML INJECTION IV PRN; -oxyCODONE 5MG TAB PO PRN
== END ==
LOC: M SFHCLERA 16:32
PROVIDERS: ATTEND Family Medicine
DX: J02.9 Acute pharyngitis, unspecified (principal)

== ENCOUNTER → 2023-05-09 | Outpatient (REF) | payer BC, OTHER | LOC: M SFHCWAGY 11:49 | PROVIDERS: ATTEND Nurse Practitioner Family | DX: Z12.4 Encounter for screening for malignant neoplasm of cervix (principal) | CPT/HCPCS: 87624; G0123 ==

== ENCOUNTER → 2024-02-07 | Outpatient (CLI) | payer BC ==
[2024-02-07 13:53] LABS: BLOOD UREA NITROGEN 13 MG/DL (9-23); CALCIUM LEVEL 9.4 MG/DL (8.5-10.1); CARBON DIOXIDE LEVEL 27 MMOL/L (20-31); CHLORIDE LEVEL 107 MMOL/L (98-107); CREATININE FOR GFR 0.95 MG/DL (0.55-1.30); GLOMERULAR FILTRATION RATE > 60.0 (>60); GLUCOSE, FASTING 93 MG/DL (60-100); POTASSIUM SERUM 4.4 MMOL/L (3.5-5.1); SODIUM LEVEL 140 MMOL/L (136-145)
== END ==
LOC: M PLALAB 10:11
PROVIDERS: ATTEND Obstetrics & Gynecology
DX: L68.0 Hirsutism (principal)

== ENCOUNTER → 2024-10-09 | Outpatient (CLI) | payer BC ==
[~2024-10-09] MED LIST changes: +ZYRTTAB8 PO
== END ==
LOC: M RAD 16:08
PROVIDERS: ATTEND Family Medicine
DX: E04.9 Nontoxic goiter, unspecified (principal)

== ENCOUNTER → 2024-10-23 | Outpatient (REF) | payer BC ==
[2024-10-27 12:27] LABS: HPV APTIMA Not Detected (Not Detected)
== END ==
LOC: M SFHCWAGY 15:14
PROVIDERS: ATTEND Obstetrics & Gynecology
DX: Z12.4 Encounter for screening for malignant neoplasm of cervix (principal); Z77.9 Other contact with and (suspected) exposures hazardous to health
CPT/HCPCS: 87624; G0123

== ENCOUNTER 2024-11-02 10:39 | Day surgery (SDC) | payer BC ==
[~2024-11-02] VITALS: Ht 162.6 cm; Wt 64.9 kg
[2024-11-02] MEDS: LR 1,000 ML IV SCH (11:27)
[2024-11-02] MEDS ORDERED: ONDANSETRON 4MG 2ML VIAL As Ordered ONE (12:05)
[2024-11-02] MEDS ORDERED: LIDOCAINE 2% 100 MG/5 ML SDV (FOR ANES.) As Ordered ONE (12:05)
[2024-11-02] MEDS ORDERED: dexAMETHasone 4 MG/ML 1 ML VIAL As Ordered ONE (12:05)
[2024-11-02] MEDS ORDERED: MIDAZOLAM INJ 2 MG/2 ML VIAL As Ordered ONE (12:08)
[2024-11-02] MEDS ORDERED: KETOROLAC 30 MG/ML 1 ML VIAL As Ordered ONE (12:46)
[2024-11-02] MEDS ORDERED: ACETAMINOPHEN 1000MG/100ML IV BAG As Ordered ONE (12:47)
[2024-11-02] MEDS: SCOPOLAMINE 1MG TRANSDERMAL PATCH TOP ONE (13:08)
[2024-11-02] MEDS: SCOPOLAMINE 1MG TRANSDERMAL PATCH As Ordered ONE (13:09)
[2024-11-02] MEDS ORDERED: diphenhydrAMINE 50 MG/ML VIAL IV PRN (13:15)
[2024-11-02] MEDS ORDERED: HYDROMORPHONE HCL 0.5 MG/0.5 ML SYRINGE IV PRN (13:15)
[2024-11-02] MEDS ORDERED: LR 1,000 ML IV SCH (13:15)
[2024-11-02 13:53] VITALS: BP 119/77; TEMP 97.2; O2SAT 98
== END 2024-11-02 14:22 | disposition home or self-care (01) ==
LOC: M SDC 10:39
PROVIDERS: ATTEND Orthopaedic Surgery Hand Surgery
DX: G56.01 Carpal tunnel syndrome, right upper limb (principal); Z88.1 Allergy status to other antibiotic agents; Z91.048 Other nonmedicinal substance allergy status
CPT/HCPCS: 29848; J0131; J0665; J1100; J1885; J2250; J2405; J2765; J3010

== ENCOUNTER → 2024-11-23 | Outpatient (REF) | payer BC ==
[2024-11-23 12:39] LABS: APPEARANCE, URINE CLEAR (CLEAR); BACTERIA, URINE AUTO 2+ (NEGATIVE); BILIRUBIN, URINE AUTO NEGATIVE (NEGATIVE); BLOOD, URINE BLOOD 2+ (NEGATIVE); GLUCOSE, URINE (UA) AUTO NEGATIVE (NEGATIVE); KETONE, URINE AUTO NEGATIVE (NEGATIVE); LEUKOCYTE ESTERASE, URINE AUTO 2+ (NEGATIVE); MUCUS, URINE SMALL (NEGATIVE); NITRITE, URINE AUTO NEGATIVE (NEGATIVE); PROTEIN, URINE AUTO NEGATIVE (NEGATIVE); RBC, URINE AUTO 3 /HPF (0-3); SPECIFIC GRAVITY URINE AUTO 1.005 (1.002-1.035); SQUAMOUS EPITHELIAL CELL UR AU 1 /HPF (0-6); UROBILINOGEN, URINE AUTO 0.2 mg/dL (0.0-2.0); WBC, URINE AUTO 23 /HPF (0-3)
== END ==
LOC: M LAB REF 11:59
PROVIDERS: ATTEND Physician Assistant
DX: N39.0 Urinary tract infection, site not specified (principal)

== ENCOUNTER → 2024-12-08 | Outpatient (CLI) | payer BC | LOC: M WHC 09:00 | PROVIDERS: ATTEND Obstetrics & Gynecology | DX: N92.6 Irregular menstruation, unspecified (principal) ==